=== PATIENT | female | born 1975 | race Hispanic/Latino ===

== ENCOUNTER 2017-11-12 06:36 | Day surgery (SDC) | payer BC ==
[2017-11-09 14:44] VITALS: BMI 24.9
[2017-11-12 07:08] LABS: BASO # 0.1 K/uL (0.0-0.2); BASO % 1.2 % (0.0-2.0); EOS # 0.1 K/uL (0.0-0.7); EOS % 1.4 % (0.0-4.0); HEMOGLOBIN 13.6 g/dL (12.0-16.0); LYMPH % 36.7 % (20.0-40.0); MEAN CELL VOLUME 91.6 fl (81.0-99.0); MEAN CORPUSCULAR HGB CONC 33.9 g/dL (33.0-37.0); MEAN PLATELET VOLUME 7.3 fl (7.2-11.7); MONO # 0.4 K/uL (0.0-0.8); NEUT % 53.7 % (50.0-75.0); NRBC % 0.1 % (0.0-0.0); RBC 4.39 Mil/uL (3.80-5.20); RED CELL DISTRIBUTION WIDTH 13.6 % (11.5-14.5); WHITE BLOOD COUNT 5.6 K/uL (4.8-10.8)
[2017-11-12] MEDS ORDERED: Bupivacaine 0.5% Inj(30mL) ONE (07:30)
[2017-11-12] MEDS ORDERED: Lactated Ringer's 1,000 ML IV ONE ×2 (07:45→09:05)
[2017-11-12] MEDS ORDERED: Propofol 10 mg/ml Inj (20 ML) ONE (08:31)
[2017-11-12] MEDS ORDERED: Midazolam 2 MG/2 ML VIAL ONE (08:31)
[2017-11-12] MEDS ORDERED: Rocuronium 10 mg/ml (5 ml) ONE (08:32)
[2017-11-12] MEDS ORDERED: Succinylcholine 200 mg/10 ml Inj IV ONE (08:32)
[2017-11-12] MEDS ORDERED: Lidocaine 4% (Laryng-O-Jet) Kit MM ONE (08:32)
[2017-11-12] MEDS ORDERED: ePHEDrine 50 mg/ml Inj ONE (08:32)
[2017-11-12] MEDS ORDERED: Neostigmine 1:1000 (1 mg/ml) Inj ONE (08:39)
[2017-11-12] MEDS ORDERED: Dexamethasone 4 mg/1 ml ONE (09:15)
[2017-11-12] MEDS ORDERED: Bupivacaine 0.5% 50 ML IJ ONE ×3 (09:21→09:33)
[2017-11-12] MEDS ORDERED: Methylene Blue 10 mg/mL(10ml) IV ONE (10:09)
[2017-11-12] MEDS ORDERED: Desflurane Inhalation Anesthetic Liq (240 ml) ONE (10:11)
[2017-11-12] MEDS ORDERED: Methylene Blue 10 mg/ml (1ml) Inj IV ONE (10:30)
[2017-11-12] MEDS ORDERED: Silver Nitrate Topical - Stick ONE (11:04)
[2017-11-12] MEDS ORDERED: Oxycodone/Acetaminophen 5/325 mg Tab PO PRN (11:31)
[2017-11-12] MEDS ORDERED: DiphenhydrAMINE 50 mg/ml Inj IVP PRN (11:49)
[2017-11-12] MEDS ORDERED: Lactated Ringer's 1,000 ML IV SCH (12:00)
[2017-11-12] MEDS ORDERED: HYDROmorphone 0.5 mg/0.5 ml ISec ONE (12:32)
[2017-11-12] MEDS ORDERED: HYDROmorphone 0.5 mg/0.5 ml ISec IVP PRN (12:34)
[2017-11-12 15:28] VITALS: TEMP 97.4
[2017-11-12 17:44] VITALS: BP 110/57; PULSE 89; RESP 18; O2SAT 99
--- NOTE | 2017-11-16 09:07 | PCM.OP ---
Operative Report - Operative Report Date of Surgery/Procedure: 11/12/17 Time of Surgery/Procedure: 08:00 Surgeon: Dr. Luis M Auguste Printing Sign Machine Operator: Dr. Jose Huitron Anesthesia/Sedation: general/Dr. Vidal Pre-Operative Diagnosis: endometriosis and abdominal pain Post-Operative Diagnosis: same Indication for Surgery: as above Operative Findings: as above Procedure/Operation Description: 1-Appendectomy. Brief History: Dr. Huitron ahd already begin the procedure when re requested intraoperative general surgery consultation for involvement of the appnedix and due to the patients significant history of abdominal pain. Description of the Procedure: The patient had already been brought to the operating room by Dr. Huitron (separate dictation Dr. Huitron). After taking the robotic console the appndix was retracted anteriorly and the mesentery was dessicaated with elelctrocautery with particular attention to the appendiceal artery. The base was disscteed and with three separate looped 3-0 PDS the apppendix was ligated. Then trasected and the remnant mucosa was cauterized. the operation was then tirned over to Dr. Huitron (separate dictation Dr. Huitron). Estimated Blood Loss: 2 cc Complications: none Specimen: appendix Discharge & Condition: stable
--- NOTE | 2017-11-17 11:47 | OP ---
PROCEDURE DATE: 11/12/2017 PREOPERATIVE DIAGNOSES: Pelvic pain, dysmenorrhea, dyspareunia, and symptomatic fibroid. POSTOPERATIVE DIAGNOSES: Pelvic pain, dysmenorrhea, dyspareunia, and symptomatic fibroid. PROCEDURE PERFORMED: Cystoscopy with bilateral ureteral catheterization, injection of dye, hysteroscopy robotic da Zoraida, myomectomy and removal of endometriosis, incidental appendectomy to be dictated separately by Dr. Luis M Auguste. SURGEON: Jose Huitron MD SALES APPLICATIONS ENGINEER: Luis M Auguste MD TYPE OF ANESTHESIA: General endotracheal. ESTIMATED BLOOD LOSS: 100 mL. COMPLICATIONS: None. SPECIMENS: Uterine fibroid sent to Pathology and appendix sent to Pathology. INDICATION FOR PROCEDURE: The patient is a 42-year-old with symptomatic fibroids, pelvic pain, dysmenorrhea, and dyspareunia. Prior to the surgery, she was counseled with regards to the risk and benefits of the surgery. We had discussed various options. There was definitely a fibroid, which was a large and pedunculated and posterior pressing on the rectum. There was a small anterior fibroid. I had discussed with the patient prior to the surgery that based on the location and difficulty of excision, I would have most likely removed the posterior pedunculated fibroid and just considered removing anterior fibroid depending on it's position and location. The patient signed the consent consenting to all the myomectomy, the appendectomy and all associated procedures and she was taken to the OR. DESCRIPTION OF PROCEDURE: After adequate anesthesia was obtained, the patient was placed in a dorsal lithotomy position. She was prepped and draped. The surgeon was gowned and gloved. Extreme attention was placed in position. The patient in a good anatomical position with no pressure and the patient's hips were either hyperextended or hyperflexed throughout the procedure. At this point, a cystoscope was inserted into the bladder under direct visualization. The bladder was visualized. Usual catheters open ended were injected into the both ureters and 5 mL of IC-Green were injected into the each ureter in order to visualize the ureters throughout the procedure due to possibility of endometriosis . At this point, attention was in the vaginal area where a speculum was placed in the vagina. The anterior lip of the cervix was grasped. The cervix was dilated and a hysteroscope was inserted into the uterus revealing a normal size cavity. There was no evidence of compression anteriorly or submucous fibroid. At this point, attention was on the abdominal site where after re-gowning and re-gloving, an open laparoscopy was performed by making incision in the umbilicus and carrying the incision to the fascia. The peritoneum was entered in a blunt fashion. Under direct visualization, three additional ports where placed in left upper quadrant, left mid quadrant and right upper quadrant. The da Zoraida Xi robot was docked. At this point, the pelvis was visualized. There was a large pedunculated posterior fibroid. Utilizing bipolar scissors, it was circumferentially excised. After the excision, there was no damage to the muscle and the serosal defect was closed with a running suture of 2-0 V-lock. Attention was then anteriorly, a small incision was made on the serosa of the uterus anteriorly and started dissection. 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 At this point, attention was on the pelvis where both were visualized and appeared to be normal. There was evidence of inflammatory changes in the posterior cul-de-sac, and therefore, I discussed with the patient, the helium plasma was utilized to ablate the cul-de-sac, peritoneum, and the right ovarian fossa and pelvic sidewalls. At this point, it was checked for hemostasis and appeared to excellent. The fibroid was placed in an Endobag and retrieved from the umbilical incision, which was slightly enlarged. At this point, the abdomen was desufflated. The robot had been undocked and the incision was closed with 0 PDS for the fascia and 4-0 Monocryl for the skin. At the end of the procedure, all tapes and instrument counts were correct. The patient tolerated the procedure well, was taken to recovery room in excellent condition. Dr. Auguste will dictate separately the appendectomy. Jose Huitron MD [facility]
== END 2017-11-12 19:40 | disposition home or self-care (01) ==
LOC: H.OPSURG 06:36
PROVIDERS: ATTEND Obstetrics & Gynecology Reproductive Endocrinology
DX: R10.2 Pelvic and perineal pain (principal); N94.6 Dysmenorrhea, unspecified; D25.9 Leiomyoma of uterus, unspecified; K37 Unspecified appendicitis
CPT/HCPCS: 36415; 44970; 58545; 85025; 86850; 86900; 88304; 88305; C1729; J0330; J1100; J1170; J1200; J2001; J2250; J2405; J2704; J2710; J2765; J3010; J7030; J7040; J7120; Q9968